=== PATIENT | male | born 1980 | race Caucasian/White ===

== ENCOUNTER → 2017-11-20 18:29 | Outpatient (CLI) | payer BC, SELFPAY | PROVIDERS: Visit Provider Physician Assistant | DX: J02.9 Acute pharyngitis, unspecified (principal) | CPT/HCPCS: 87081 ==

== ENCOUNTER 2018-04-04 10:22 | Emergency (ER) | payer BC, SELFPAY ==
[2018-04-04 10:23] VITALS: BP 135/83; PULSE 71; RESP 14; TEMP 36.6; O2SAT 97; BMI 28.0
--- NOTE | 2018-04-04 10:27 | VDLE_ITS ---
Reason For Study: LEG PAIN RIGHT LEFT GSV is normal. CFV is compressible, spontaneous, phasic, CFV is compressible, spontaneous, phasic, competent, and demonstrates normal competent and demonstrates normal augmentation. augmentation. FV is compressible, spontaneous, phasic, competent and demonstrates normal augmentation. POP V is compressible, spontaneous, phasic, competent and demonstrates normal augmentation. T/P Trunk is compressible. PTV is compressible. RT PerV is compressible. Thrombus filled varicose vein rt lateral knee area. Procedure Exam performed portable in ED. A preliminary report was called and/or faxed to Dr. Burns. Interpretation Summary Deep veins of the right lower extremity are patent and compressible segmentally. There is no evidence of right lower extremity deep vein thrombosis. Valvular competence appears intact within the proximal deep venous system on the right . The right greater saphenous vein appears patent and compressible segmentally. Acute superficial thrombophlebitis is noted involving superficial varicosities lateral to the right knee. Ordering Physician: Leticia Burns Performed By: Aminah Parikh RVT
--- NOTE | 2018-04-04 10:56 | ED.DCSUM_ITS ---
- ER Visit Summary Date of Service: 04/04/18 Chief Complaint: Right leg pain and swelling History of Present Illness: The patient is a 37 M who noted a small tender area to the right lateral lower extremity just below the knee 2 evenings ago. The area is now larger with increased redness and tenderness. He did have a right lower extremity DVT for 5 years ago. Denies any recent travel. He has not had chest pain or shortness of breath. Physical Examination: Vital signs unremarkable. Patient sitting upright in bed no acute distress. Heart is regular rate and rhythm. Lung sounds are clear. Right lower external examination reveals a 7 cm area of erythema lateral to the distal knee. It is slightly tender to palpation. No palpable cords are noted. No posterior calf tenderness. No significant leg edema. Strong distal pulses and normal sensation are noted. Test Results: Venous ultrasound of the right lower extremity reveals superficial thrombophlebitis with no evidence of DVT. Emergency Department Course and Treatment: Test results are discussed with patient. He is encouraged to elevate and use warm compresses. He is encouraged to take baby aspirin [id number]. Treatment Plan: [] Disposition: Discharge Impression: Superficial thrombophlebitis right lower extremity This note was generated with [employer] dictation software. It may contain incorrect words, spelling, and punctuation that were not noted in review of the chart prior to signing ED Disposition - Plan for ED Patient: Chief Complaint: Lower Extremity Injury Referrals: [facility] Doctor,Out of [Primary Care Provider] -
--- NOTE | 2018-04-04 10:57 | DCINST.ED_ITS ---
ED Disposition - Plan for ED Patient: Disposition: Home or Assisted Living Chief Complaint: Lower Extremity Injury Instructions: ED Phlebitis Superficial Referrals: [facility] Doctor,Out of [Primary Care Provider] -
[2018-04-04 11:06] VITALS: BP 125/70; PULSE 63; RESP 18; O2SAT 99
== END 2018-04-04 11:06 | disposition home or self-care (01) ==
PROVIDERS: Emergency Provider Emergency Medicine
DX: I80.01 Phlebitis and thrombophlebitis of superficial vessels of right lower extremity (principal); J45.909 Unspecified asthma, uncomplicated
CPT/HCPCS: 93971; 99282; A4216

== ENCOUNTER → 2018-05-13 15:58 | Outpatient (CLI) | payer BC, SELFPAY ==
[2018-05-13 17:46] LABS: Hematocrit 48.4 % (40-54); Hemoglobin 16.3 g/dl (13.0-16.5); Mean Corp Hgb Conc 33.7 g/gl (32-36); Mean Corpuscular Hgb 30.4 pg (27.0-32.0); Mean Corpuscular Volume 90.1 fL (80-94); Mean Platelet Vol. 11.1 fl (6.2-12.0); Platelet Count 495 K/mm3 (150-450); RBC Distribution Width CV 13.8 % (11.6-14.6); RBC Distribution Width SD 45.8 fl (35.1-43.9); Red Blood Count 5.37 M/mm3 (4.6-6.2); White Blood Count 14.9 K/mm3 (4.4-11.0)
[2018-05-13 17:47] LABS: Scan Indicated on CBC? Y/N NO
[2018-05-13 18:24] LABS: ALB/GLOB Ratio 1.2 RATIO (0.9-2.4); AST(SGOT) 30 U/L (15-37); Alanine Aminotransfer ALT/SGPT 38 U/L (16-61); Albumin, Serum 4.4 g/dL (3.2-5.0); Alkaline Phosphatase 92 U/L (45-117); Anion Gap 8 (5-15); BUN 17 mg/dL (7-18); BUN/Creat Ratio 16.3 RATIO (10-20); Calcium,Total 10.1 mg/dL (8.5-10.1); Chloride 104 mmol/L (98-107); Creatinine, Serum 1.04 mg/dL (0.70-1.30); EST Glomerular Filtration Rate 86 mL/min (>60); Est Glom Filt Rate - Afr Amer 104 mL/min (>60); Globulin 3.6 g/dL (2.2-4.2); Glucose 93 mg/dL (74-106); Potassium 3.9 mmol/L (3.5-5.1); Sodium Level 140 mmol/L (136-145)
[2018-05-15 20:07] LABS: HEPATITIS B SURFACE AG Negative (Negative); Hepatitis A AB, Total Negative (Negative); Hepatitis A IgM Antibody Negative (Negative); Hepatitis B Core AB IgM Negative (Negative); Hepatitis B Core Ab Total Negative (Negative); Hepatitis C Ab <0.1 s/co ratio (0.0-0.9); QNTFERON TB Mitogen Value > 10.00 IU/mL (.); QNTFERON TB Nil Value 0.07 IU/mL (.); QNTFERON TB2+ Ag Value 0.08 IU/mL (.)
[2018-05-16 12:57] LABS: Hep B Surface Antibodies Non Reactive (.); QNTIFERON TB Positive Criteria Negative (Negative)
== END ==
PROVIDERS: Referring Provider Dermatology Pediatric Dermatology; Visit Provider Dermatology Pediatric Dermatology
DX: L40.0 Psoriasis vulgaris (principal); I83.93 Asymptomatic varicose veins of bilateral lower extremities
CPT/HCPCS: 36415; 80053; 85027; 86480; 86704; 86705; 86706; 86708; 86709; 86803; 87340

== ENCOUNTER → 2018-08-18 14:19 | Outpatient (CLI) | payer BC, SELFPAY ==
[2018-08-18 09:43] VITALS: BMI 28.0
== END ==
PROVIDERS: Referring Provider Physician Assistant Surgical; Visit Provider Physician Assistant Surgical
DX: J02.9 Acute pharyngitis, unspecified (principal)
CPT/HCPCS: 87081

== ENCOUNTER → 2018-09-12 10:00 | Outpatient (CLI) | payer BC, SELFPAY ==
[2018-08-18 09:43] VITALS: BMI 28.0
== END ==
PROVIDERS: Referring Provider Otolaryngology; Visit Provider Otolaryngology
DX: H92.10 Otorrhea, unspecified ear (principal)
CPT/HCPCS: 87070; 87075; 87077; 87186; 87205

== ENCOUNTER 2018-09-19 15:45 | Emergency (ER) | payer BC, SELFPAY ==
[2018-08-18 09:43] VITALS: BMI 28.0
[2018-09-19 15:45] VITALS: BP 140/83; PULSE 93; RESP 16; TEMP 37.1; O2SAT 97; BMI 27.6
--- NOTE | 2018-09-19 16:04 | ED.DCSUM_ITS ---
- ER Visit Summary Date of Service: 09/19/18 Chief Complaint: [Rash] History of Present Illness: The patient is a 38 M [presents to the emergency department with a rash that returned to 2 weeks ago. States that he had a rash in June and was seen by a neurosurgical nurse and diagnosed with psoriasis. Patient was given prednisone at that time and some other medications and eventually the rash disappeared. 2 weeks ago the rash came back. Patient was seen in urgent care recently and was written for a medicated shampoo to use in his scalp. Patient is noticed pustules on his forearms as well as lower extremities and abdomen. The rash is burning and itching. He denies any fever. He denies recent illness. Patient has a scheduled dermatology appointment on September 29 for second opinion. She denies being in any hot tubs.] Physical Examination: [HEENT-PERRLA, EOMI. Cranial nerves II through XII grossly intact. TMs clear. Mucous membranes moist. No adenopathy. Cardiovascular-regular rate and rhythm without murmur or ectopy Lungs-clear to auscultation, chest wall stable without crepitus or subcu emphysema Abdomen-normoactive bowel sounds, soft, nontender, no rebound or rigidity, no peritoneal signs. Skin exam-patient has a rash involving the scalp which has dry flaky skin. Patient has pustules involving the face as well as abdomen and forearms and thighs. No rashes noted on the back. Patient does not have the typical rash on the extensor surfaces that are typically associated with psoriasis. Extremities-intact ?4, normal range of motion, normal pulses, atraumatic] Test Results: None indicated [] Emergency Department Course and Treatment: Will be starting prednisone and I will treat him with clindamycin given that he has a history of being splenic. I suspect patient has folliculitis. [] Treatment Plan: [Given a prescription prednisone and clindamycin. Patient to keep his appointment with neurosurgical nurse.] Disposition: [Discharged home stable condition.] Impression: Folliculitis Dermatitis [] This note was generated with [employer] dictation software. It may contain incorrect words, spelling, and punctuation that were not noted in review of the chart prior to signing ED Disposition - Plan for ED Patient: Referrals: [facility] Doctor,Out of [Primary Care Provider] -
--- NOTE | 2018-09-19 16:08 | DCINST.ED_ITS ---
ED Disposition - Plan for ED Patient: Instructions: Folliculitis Prescriptions: Clindamycin HCl [Cleocin] 300 mg PO Q6H #40 cap Prescription Printed Prednisone [Deltasone] 20 mg PO BID #14 tab Prescription Printed Referrals: [facility],Out of [Primary Care Provider] - 5-7 Days Additional Instructions: See your shipping receiving manager
[2018-09-19] MEDS: Clindamycin HCl 150 MG Capsule 300 MG PO (16:11)
[2018-09-19] MEDS: predniSONE 20 MG Tablet 60 MG PO (16:11)
== END 2018-09-19 16:21 | disposition home or self-care (01) ==
LOC: ED 16:07
PROVIDERS: Emergency Provider Emergency Medicine
DX: L73.9 Follicular disorder, unspecified (principal); L30.9 Dermatitis, unspecified; L08.9 Local infection of the skin and subcutaneous tissue, unspecified
CPT/HCPCS: 99283

== ENCOUNTER → 2019-07-23 12:45 | Outpatient (CLI) | payer BC, SELFPAY ==
--- NOTE | 2019-07-23 12:56 | CT_ITS ---
STUDY: CT MAXILLOFACIAL SINUSES REASON FOR EXAM: Male, 38 years old. SINUSITIS -- RIGHT NASAL CAVITY CRUSHED D/T INJURY CHILD RADIATION DOSAGE (If Supplied By Facility): CTDIvol = ( 33.06 ) mGy, DLP = ( 809.06 ) mGycm TECHNIQUE: The patient was scanned in a multi detector CT scanner. High resolution axial imaging was performed without the administration of intravenous contrast material. Sagittal and coronal images were reconstructed. Individualized dose optimization techniques were used for this CT. COMPARISON: None. FINDINGS: FRONTAL SINUSES: Normal aeration, without mucosal inflammatory disease. ETHMOIDAL SINUSES: Mild degree of mucosal thickening of the ethmoid sinuses bilaterally. MAXILLARY SINUSES: Almost complete opacification of the left maxillary sinus. Mucosal thickening of the right maxillary sinus. There is obliteration of the left ostiomeatal complex due to mucosal hypertrophy. SPHENOIDAL SINUSES: Normal aeration, without mucosal inflammatory disease. There is patency of the bilateral maxillary infundibuli with normal uncinate processes, ethmoid bullae, and hiatus semilunaris. Normal bilateral middle turbinates. There is hypertrophy of the left inferior nasal turbinate. There is a left sided nasal septal deviation, but without a nasal septal spur. There is patency of the bilateral nasal airways. The visualized osseous structures are normal. The visualized bilateral orbital contents are normal. CT/Sinus/Facial Bone IMPRESSION: Bilateral maxillary and ethmoid sinusitis. Electronically Signed: Franky Cox, at 13:34 EDT , Service support ,
== END ==
PROVIDERS: Referring Provider Otolaryngology; Visit Provider Otolaryngology
DX: J32.9 Chronic sinusitis, unspecified (principal)
CPT/HCPCS: 70486

== ENCOUNTER → 2019-07-27 14:29 | Outpatient (CLI) | payer BC, SELFPAY ==
[2019-07-27 10:53] VITALS: BMI 27.6
== END ==
PROVIDERS: Referring Provider Physician Assistant; Visit Provider Physician Assistant
DX: L02.91 Cutaneous abscess, unspecified (principal)
CPT/HCPCS: 87070; 87077; 87186; 87205

== ENCOUNTER → 2020-06-24 17:11 | Outpatient (CLI) | payer BC, SELFPAY ==
[2019-07-27 10:53] VITALS: BMI 27.6
== END ==
PROVIDERS: Referring Provider Otolaryngology; Visit Provider Otolaryngology
DX: Z11.59 Encounter for screening for other viral diseases (principal)
CPT/HCPCS: 87635; C9803; U0002

== ENCOUNTER → 2020-08-17 18:02 | Outpatient (CLI) | payer BC, SELFPAY ==
[2020-08-17 14:44] VITALS: BMI 27.6
[2020-08-17 18:04] LABS: Bacteria 0 SEEN /hpf (None Seen); Mucous, Urine 0 SEEN /hpf (<or=2+); Red Blood Cells-Urine 0 SEEN /hpf (0-5); Squamous Epithelial Cells - UA 0 SEEN /hpf (0-5); White Blood Cells 0 SEEN /hpf (0-5)
[2020-08-17 18:11] LABS: Color, Urine Yellow (Yellow); Glucose, Dipstick Normal (Normal); Ketone-Dipstick Negative (Negative); Leukocyte Esterase-Dipstick Negative /ul (Negative); Nitrite-Dipstick Negative (Negative); Occult Blood-Urine 10 /ul (Negative); Protein-Dipstick 15 mg/dl (Negative); Urine Bilirubin Dipstick Negative (Negative); Urine Clarity Clear (Clear); Urine Urobilinogen Normal (Normal)
[2020-08-17 19:47] LABS: Chlamydia Trachomatis by PCR Negative (Negative); Neisserai gonorrhoeae by PCR Negative (Negative); Probe Check PASS; Sample Adequacy Control PASS; Specimen Processing Control PASS; Trichomonas Vag DNA by PCR Negative (Negative)
== END ==
PROVIDERS: Visit Provider Physician Assistant
DX: Z20.2 Contact with and (suspected) exposure to infections with a predominantly sexual mode of transmission (principal)
CPT/HCPCS: 81001; 87086; 87491; 87591; 87661

== ENCOUNTER 2021-04-06 17:13 | Outpatient (CLI) | payer BC, SELFPAY | END 2021-04-06 23:59 | disposition short-term general hospital (02) | PROVIDERS: Visit Provider Otolaryngology | DX: H92.10 Otorrhea, unspecified ear (principal) | CPT/HCPCS: 87070; 87075; 87077; 87186; 87205 ==

== ENCOUNTER 2024-02-03 11:53 | Emergency (ER) | payer BC, SELFPAY ==
[2024-02-03 11:54] VITALS: BP 154/103; PULSE 80; RESP 16; TEMP 36.3; O2SAT 94; BMI 28.8
--- NOTE | 2024-02-03 14:28 | EX.ED.VIS.PS ---
HPI HPI - Psych History of Present Illness Chief Complaint: Mental Health Informant: patient Narrative Narrative: Patient is a 43-year-old male presenting with worsening depression symptoms. Patient states he is coming up and his mom's anniversary. She 2 years ago. In addition he was seen broke up with his girlfriend and had to kick her out of his house. He states he had recently reached out to [facility] to follow-up with a therapist. He has an appointment this coming month. Today he was feeling overwhelmed and crying at work. He talked to and was referred to [facility]. She the case advocate he spoke to they recommend he come to the ER for further evaluation. He denies any thoughts of self-harm. He states that while he is seeking help he does not want to be admitted to a psychiatric hospital and wants to be able to go to work tomorrow morning. States he did have a psychiatric admission in 2020 where he stayed for 8 to 9 days. He is not currently on any medications. No other complaints or concerns reported this time. [facility] Medical History Cellulitis of right thigh Cellulitis of right axilla Abscess or cellulitis of groin Screening examination for STD (sexually transmitted disease) Asthma Home Medications ?Medication ?Instructions ?Recorded ?Last Taken ?Type duloxetine 30 mg capsule,delayed 30 mg PO 08/17/20 Unknown History release tobramycin 0.3 % eye drops 1 drp ophthalmic (eye) Q2H #5 mL 11/25/23 Unknown Rx Allergy/AdvReac Type Severity Reaction Status Date / Time No Known Allergies Allergy Verified 02/03/24 11:54 Family History Other Asthma Diabetes Heart disease Hypertension Surgical History Hx of splenectomy Social History Smoking Status: Never smoker alcohol intake: never ROS ROS ED Constitutional Constitutional ED: Denies chills or fever(s) Eyes Eyes: Reports other Details: Dry eye, eye irritation?currently being treated by an breaker off ; Denies blurry vision Respiratory/Chest Respiratory/Chest: Denies cough or dyspnea Musculoskeletal Musculoskeletal: Denies arthralgias or myalgias Psychiatric Psychiatric: Reports anxiety and depression; Denies suicidal ideation or suicidal thoughts EXAM Physical Exam Const Vital Signs: 02/03/24 11:54 02/03/24 14:43 Temperature 97.3 F L 98.5 F Temperature Source Temporal Pulse Rate 80 77 Respiratory Rate 16 19 H Blood Pressure 154/103 H 128/72 H Blood Pressure Mean 120 90 Pulse Ox 94 97 Oxygen Delivery Method Room Air Positive well nourished and well developed General Appearance ED: well developed and NAD HEENT Reports moist mucous membranes normocephalic and atraumatic Eyes PERRL and EOMs intact bilaterally Eyes Narrative: Thickening of the skin of the periorbital area consistent with a more chronic atopic dermatitis Neck supple Resp normal respiratory effort and clear to auscultation bilaterally Cardio no murmurs Rate: regular rate Rhythm: regular rhythm Extremity normal to inspection Neuro oriented x3 Sensorium / Orientation: alert Motor Exam: muscle tone normal throughout; Negative for general weakness Psych mental status grossly normal, thought process normal, cooperative, affect normal, speech normal, activity/motor behavior normal, denies hallucinations, denies homicidal ideation and denies suicidal ideation Mood & Affect: depressed Insight: insight good Judgement: judgement good MDM MDM MDM Narrative Medical decision making narrative: Patient is evaluated for worsening depression. Denies any HI or SI. No physical complaints at this time. He states his goal of the interaction today is to get faster follow-up with [facility]. Patient is evaluated case management. Patient is set up for an appointment with the nurse practitioner for for tomorrow at 7:30 AM. Patient is agreeable with this. Patient is encouraged to return to the emergency room should he have a progression worsening of his depression or thoughts of self-harm. Encouraged to call the counseling center crisis line if needed. Patient verbalized agreement or stands plan. Is given a work note for today and tomorrow since he was in the ER and for his doctor's appointment tomorrow. Discharge Plan Triage Chief Complaint: Mental Health ED Provider: Tessa Vergara Dx/Rx/DC Orders Clinical Impression: Depression Instructions: ED Depression Prescriptions: No Action duloxetine 30 mg capsule,delayed release(DR/EC) 30 mg PO tobramycin 0.3 % drops 1 drp ophthalmic (eye) Q2H Qty: 5 0RF Rx Instructions: to affected eye while awake first 24 hours, then 3x/day on days 2-5 Stand Alone Forms: ED Work / School Excuse Primary Care Provider: Philip Daly MD Referrals: Philip Daly MD [Other] Maryuri Diaz NP-C [Med Staff - Supervisor [employer]] - 02/04/24 7:30 am (Please arrive by 1427 for paperwork. ) Activity Restrictions/Additional Instructions: Please call the counseling center/crisis line if you feel unsafe or have thoughts of harming yourself. You have an appointment tomorrow to follow-up with Azalea Diaz, psychiatric nurse practitioner at [facility]. Please arrive by 567 for paperwork. Your appointment is at 7:30 AM. Print Language: Vietnamese Disposition Disposition: Home, Self Care Discharge Date/Time: 02/03/24 14:43
--- NOTE | 2024-02-03 14:39 | CM.ED ---
Social Work Psychiatric Assessment Reason for consult: Mental Health Informant(s): Medical record and patient himself. Chief Complaint: Patient presents to [facility] ED to talk with someone. Patient reports to have an appointment at [facility] psychiatry on 02.28.24 but was crying today, feeling lonely and in need of someone to talk to. Patient was directed by his HR to talk with Tiffany Brown, who then directed patient to come to the ED to talk with someone sooner. Patient reports not sure why he was crying more today other than the recent anniversary of his mother's in November, the holidays coming up and being a mama's boy. Most recent stressor, described by patient is that he was in a 90 day relationship with a woman, who has 6 kids, and was looking forward to the holidays, having a family, and for once not thinking about his mother; then patient found out this girlfriend was cheating and then broke up 2 weeks ago. Patient reports sleep has been poor, only sleeping a few hours a night. Appetite is present, though patient states appetite is likely not what it should be. Patient reports to feel lonely, deeply wants a family, and perceives he is being rejected by others. Patient is future oriented however, in that he is invested in work and hopes to find someone to and have children with. Patient's goals for his mental health are for someone to help patient feel better and get down to why patient is fine one minute and then does a 180 the next minute. Patient admits to having some anger. Marital/Social History: Single, never , but I want to be , and I want to have kids. Living Situation: Lives alone in an apartment, which patient has had for 2 years, which was set up for patient by his mother, 2 months before her in 2021. Support/Resources: Patient reports to have a cousin who could be a support, but I feel alone and I feel like I'm not wanted by women. History: Denies, despite wanting to be in the . [place] due to having asthma and being an only child was turned away. Education and Employment History: Graduated high school, no additional training. Works at [employer] for the last 10 years, though did take a short break during this timeframe. Currently works first shift, starting at 0600. Mental Health Treatment/History: Patient reports has been to [facility] near [facility] for medication management. Reports has been on different medications in the past, though could not recall what any of those medications were. Reports was hospitalized one time in 2020, after making a comment to the [facility] after saying that not want to be here anymore. Patient reports had some type of falling out after trying to talk with the provider on a medication change and billing issue. Patient reports the hospitalization lasted for 8-9 days at [facility]. Later on in assessment reported diagnosis as a teen with ADHD and treated with Ritalin. Patient admits to history of depression, but unable to say for what diagnosis he has been treated for in the past. Family history included possibility of patient's father having Bipolar disorder, though unsure of formal diagnosis, only that knows how patient's father treated patient's mother. Triggers/Stressors to mental health: Patient's mother 12.07.2021, recent break up with a girlfriend 2 weeks ago, and perception of being passed up for better jobs at current employer Coping Skills: Video games. History of Abuse (physical/sexual/verbal/emotional): Denies, other than being bullied throughout school. Substance Abuse Current/Historical: Reports history of using marijuana, but none in 2 years. Reports as a teen experimented with cocaine. Denies alcohol abuse history. Denies even drinking socially at this point. Risk to Self/Others: ? Suicidal (thought/plan/intent/attempt): [place] Suicide Risk Assessment completed. Patient denies wishing to be or actually thinking of killing self in the last month, or in his lifetime. Reports at the age of 14 when his grandfather , patient missed his grandfather so much that wanted to be with his grandfather, describing that was depressed and sat by the coffin without moving, but denies thinking of suicide, a way to kill self, or any preparations to kill self. Reports this was 30 years ago. Reports the incident in 2020 when hospitalized at [facility] was taken out of turn, denying any thoughts/plans/intent or attempts at that time. Denies thinking of any ways he could kill himself. Denies any recent or historical attempts of suicide, doing anything dangerous to harm self, or non suicidal self injurious behaviors. Patient admits as a teen was destructive of property, impulsive with driving, and stole golf carts. No injury reported during these actions. Denies any self interrupted or aborted attempts. Denies any interrupted attempts by others. No history of preparatory acts reported. ? Access to Lethal Means: Denies owning or having access to firearms. No stockpiles of medications. ? Homicidal (thought/plan/intent/attempt): Denies any past or current thoughts, plans, intent or actions towards homicide. ? History of Violence (self/others/objects): Reports punched a wall one time, but denies violence to others, self or objects. Mental Status Exam: ??? Orientation: Alert and oriented. ??? Memory: Good. Appearance/General Behavior: Directable, dressed comfortably, good eye contact, teary eyed throughout. Mood/Affect: Depressed. Affect constricted overall, but intermittently would laugh and use humor. Communication Pattern: Talkative, answers questions, slightly rambles. Thought Process: Appropriate, logical, no evidence of A/V hallucinations. General Intellectual Functioning:?? Average Judgment: Fair Insight: Poor. Spoke with physician who supports patient being discharged home. There is no active SI with planning or intent reported. Patient sought out help for emotional distress and appears to want to feel better, seeking out how to get help sooner than 02.28.2024. Confirmed with ED provider, and no need for formal safety plan. Spoke with [facility] and able to get patient in with MONIQUE Diaz tomorrow, 02.04.24 at 0730. Patient to arrive at 0715. Met with patient to discuss. Initially patient stated that unable to go to appointment due to having to work. SW challenged patient about missing work today, and patient's presentation to the ED to figure out how to get care sooner. Patient suggested this marketing copywriter call his HR and talk this through. This marketing copywriter placed responsibility to patient to call HR and work out details of work tomorrow. Patient made call and put HR on speaker. HR reports willingness to work with patient so patient can go to appointment. This appeared to ease patient's mind. Educated patient, after call that this appointment is for medication evaluation and that appointment on 02.28.24 is with therapist Leticia Butterfield. Patient willing to have appointment to evaluate for medications. Provided patient with contact information for [facility], [facility] 24 hour hotline, national suicide hotline and 988 crisis line. Educated patient that he can reach out to crisis at anytime of day should patient feel distress. Patient voiced agreement and understanding. Plan: Home with outpatient follow up. [facility] - 02.04.2024 at 0730 (Azalea Diaz DISTRICT OPERATIONS MANAGER), 02.28.24 at 1500 with therapist Leticia Fuller No other services requested or indicated. -RANDA Vazquez ?
[2024-02-03 14:43] VITALS: BP 128/72; PULSE 77; RESP 19; TEMP 36.9; O2SAT 97
== END 2024-02-03 14:43 | disposition home or self-care (01) ==
PROVIDERS: Emergency Provider Emergency Medicine; Visit Provider Emergency Medicine
DX: F32.A Depression, unspecified (principal)
CPT/HCPCS: 99282

== ENCOUNTER → 2024-10-29 | Outpatient (CLI) | payer BC, SELFPAY ==
[2024-10-29 11:35] LABS: PSA,Total - Annual Screen 3.71 ng/mL (0.02-4.00)
== END | disposition home or self-care (01) ==
LOC: LAB 10:01
PROVIDERS: Referring Provider Nurse Practitioner; Visit Provider Nurse Practitioner
DX: Z12.5 Encounter for screening for malignant neoplasm of prostate (principal)
CPT/HCPCS: 36415; 84153; G0103